=== PATIENT | female | born 1995 | race Caucasian/White ===

== ENCOUNTER 2025-04-14 03:34 | Emergency (ER) | payer OTHER ==
[~2025-04-14] VITALS: Ht 172.7 cm; Wt 68.0 kg
[2025-04-14 03:49] VITALS: O2SAT 98
[2025-04-14] MEDS ORDERED: ONDANSETRON HCL 4MG TABLET PO ONE (04:30)
[2025-04-14] MEDS: ONDANSETRON 4MG ODT PO ONE (05:08)
[2025-04-14 05:55] VITALS: BP 114/59; PULSE 78; RESP 14; TEMP 36.8; O2SAT 98
== END 2025-04-14 05:55 | disposition home or self-care (01) ==
LOC: ER 03:34
DX: F12.90 Cannabis use, unspecified, uncomplicated (principal); R11.2 Nausea with vomiting, unspecified; F41.9 Anxiety disorder, unspecified; F12.929 Cannabis use, unspecified with intoxication, unspecified; F17.200 Nicotine dependence, unspecified, uncomplicated
CPT/HCPCS: 99283; Q0162